=== PATIENT | male | born 1995 | race Caucasian/White ===

== ENCOUNTER 2024-02-04 20:29 | Emergency (ER) | payer MEDICAID ==
[~2024-02-04] VITALS: Ht 170.2 cm; Wt 73.0 kg
[2024-02-04 20:33] VITALS: O2SAT 98
[2024-02-04 23:26] LABS: HEMATOCRIT. 45.5 % (42.0-52.0); HEMOGLOBIN. 15.7 g/dL (14.0-18.0); MEAN CORPUSCULAR HEMOGLOBIN 31.1 pg (28.0-32.0); MEAN CORPUSCULAR HGB CONC 34.6 g/dL (31.0-37.0); MEAN CORPUSCULAR VOLUME 89.9 fL (80.0-94.0); MEAN PLATELET VOLUME 10.2 fl (7.4-10.4); PLATELET 290 x1000/uL (130-400); RED BLOOD CELL COUNT 5.07 mill/uL (4.7-6.1); RED CELL DISTRIBUTION WIDTH 14.4 % (11.6-14.6); WHITE BLOOD COUNT 23.6 x1000/uL (4.5-11.0)
[2024-02-04 23:37] LABS: CHLORIDE 110 mEq/L (98-107); POTASSIUM 3.6 mEq/L (3.5-5.1); SODIUM 140 mEq/L (136-145)
[2024-02-04 23:38] LABS: CALCIUM 8.4 mg/dL (8.7-10.4); CARBON DIOXIDE 24 mEq/L (21-32)
[2024-02-04 23:43] LABS: CREATININE 0.9 mg/dL (0.6-1.3); GLUCOSE 133 mg/dL (70-105); UREA NITROGEN BLOOD 8 mg/dL (9-23)
[2024-02-04 23:44] LABS: TROPONIN I HIGH SENSITIVITY 31 ng/L (3.0-53)
[2024-02-04 23:45] LABS: ALANINE AMINOTRANSFERASE 49 IU/L (10-49); ALBUMIN 4.1 g/dL (3.2-4.8); ASPARTATE AMINOTRANSFERASE 38 IU/L (<34)
[2024-02-04 23:46] LABS: BILIRUBIN TOTAL 0.8 mg/dL (0.1-1.0); PROTEIN TOTAL 6.4 g/dL (6.0-8.3)
[2024-02-04 23:50] LABS: ETHANOL BLOOD < 10 mg/dL (<10)
[2024-02-04 23:52] LABS: DIFFERENTIAL COMMENT 1
[2024-02-05 01:12] VITALS: BP 123/63; PULSE 54; RESP 13; TEMP 98.3
[2024-02-05] MEDS: SODIUM CHLORIDE 0.9% 1,000 ML IV ONE (01:34)
[2024-02-05] MEDS: ONDANSETRON HCL 4MG/2ML INJ IV ONE (01:34)
[2024-02-05] MEDS ORDERED: NALO4SPR BOTHNSTRLS (02:03)
[2024-02-05 03:00] LABS: CLARITY URINE CLEAR (CLEAR); COLOR URINE YELLOW (YELLOW); GLUCOSE URINE NEGATIVE (NEGATIVE); KETONES URINE 1+ (NEGATIVE); LEUKOCYTE ESTERASE URINE NEGATIVE (NEGATIVE); NITRITE URINE NEGATIVE (NEGATIVE); OCCULT BLOOD URINE NEGATIVE (NEGATIVE); PROTEIN URINE NEGATIVE (NEGATIVE); SPECIFIC GRAVITY URINE 1.017 (1.005-1.030); UROBILINOGEN URINE 0.2 E.U./dL (0.2-1.0)
[2024-02-05 03:12] LABS: *AMPHETAMINES SCREEN URINE NEGATIVE (NEGATIVE); *BARBITURATES SCREEN URINE NEGATIVE (NEGATIVE); *BENZODIAZEPINES SCREEN URINE NEGATIVE (NEGATIVE); *COCAINE SCREEN URINE NEGATIVE (NEGATIVE); METHADONE URINE SCREEN Neg (NEGATIVE)
[2024-02-05 03:13] LABS: CANNABINOID URINE SCREEN PRESUMPTIVE POSITIVE (NEGATIVE); ECSTASY MDMA SCREEN URINE NEGATIVE (NEGATIVE); OPIATES URINE SCREEN NEGATIVE (NEGATIVE); PHENCYCLIDINE URINE SCREEN NEGATIVE (NEGATIVE)
[2024-02-05 10:43] LABS: PLATELET ESTIMATE NORMAL
== END 2024-02-05 02:57 | disposition home or self-care (01) ==
LOC: ER 20:29
DX: T40.5X1A Poisoning by cocaine, accidental (unintentional), initial encounter (principal); F31.9 Bipolar disorder, unspecified; Y92.89 Other specified places as the place of occurrence of the external cause
CPT/HCPCS: 80053; 80320; 83880; 85025; 84484; 36415; 71045; 93005; 99285; 80305; 81003; 96374; J2405; J7030; Z7610; G0480

== ENCOUNTER 2024-10-31 20:40 | Emergency (ER) | payer MEDICAID ==
[~2024-10-31] VITALS: Ht 172.7 cm; Wt 80.0 kg
[2024-10-31] MEDS: QUETIAPINE FUMARATE 50MG TABLET PO ONE (01:00)
[2024-10-31] MEDS: POTASSIUM CHLORIDE 20MEQ TABLET SR PO ONE (01:00)
[~2024-10-31 20:40] MED LIST: NALO4SPR BOTHNSTRLS
[2024-10-31 20:53] VITALS: O2SAT 99
[2024-10-31] MEDS ORDERED: QUETIAPINE FUMARATE 50MG TABLET PO ONE (21:15)
[2024-10-31 21:49] LABS: CLARITY URINE CLEAR (CLEAR); COLOR URINE YELLOW (YELLOW); GLUCOSE URINE NEGATIVE (NEGATIVE); KETONES URINE NEGATIVE (NEGATIVE); LEUKOCYTE ESTERASE URINE NEGATIVE (NEGATIVE); NITRITE URINE NEGATIVE (NEGATIVE); OCCULT BLOOD URINE NEGATIVE (NEGATIVE); PH URINE 6.5 (4.5-8.0); PROTEIN URINE NEGATIVE (NEGATIVE); SPECIFIC GRAVITY URINE 1.017 (1.005-1.030); UROBILINOGEN URINE 0.2 E.U./dL (0.2-1.0)
[2024-10-31 22:01] LABS: BASOPHILS % 0.6 % (0.0-2.0); HEMATOCRIT. 44.3 % (42.0-52.0); HEMOGLOBIN. 15.6 g/dL (14.0-18.0); LYMPHOCYTES % 21.5 % (20.0-50.0); MEAN CORPUSCULAR HEMOGLOBIN 30.5 pg (28.0-32.0); MEAN CORPUSCULAR HGB CONC 35.2 g/dL (31.0-37.0); MEAN CORPUSCULAR VOLUME 86.7 fL (80.0-94.0); MEAN PLATELET VOLUME 9.4 fl (7.4-10.4); MONOCYTES % 8.9 % (2.0-8.0); PLATELET 288 x1000/uL (130-400); RED BLOOD CELL COUNT 5.11 mill/uL (4.7-6.1); RED CELL DISTRIBUTION WIDTH 13.2 % (11.6-14.6)
[2024-10-31 22:04] LABS: *AMPHETAMINES SCREEN URINE NEGATIVE (NEGATIVE); *BENZODIAZEPINES SCREEN URINE NEGATIVE (NEGATIVE)
[2024-10-31 22:05] LABS: *BARBITURATES SCREEN URINE NEGATIVE (NEGATIVE); *COCAINE SCREEN URINE NEGATIVE (NEGATIVE); CANNABINOID URINE SCREEN NEGATIVE (NEGATIVE); ECSTASY MDMA SCREEN URINE NEGATIVE (NEGATIVE); METHADONE URINE SCREEN NEGATIVE (NEGATIVE); OPIATES URINE SCREEN NEGATIVE (NEGATIVE); PHENCYCLIDINE URINE SCREEN NEGATIVE (NEGATIVE)
[2024-10-31 22:11] LABS: CARBON DIOXIDE 21 mEq/L (21-32); CHLORIDE 108 mEq/L (98-107); POTASSIUM 3.2 mEq/L (3.5-5.1); SODIUM 140 mEq/L (136-145)
[2024-10-31 22:12] LABS: CALCIUM 9.9 mg/dL (8.7-10.4)
[2024-10-31 22:17] LABS: CREATININE 0.8 mg/dL (0.6-1.3); GLUCOSE 130 mg/dL (70-105); UREA NITROGEN BLOOD 13 mg/dL (9-23)
[2024-10-31 22:19] LABS: ACETAMINOPHEN < 2 ug/mL (10-30)
[2024-10-31 22:27] LABS: ETHANOL BLOOD < 10 mg/dL (<10)
[2024-11-01] MEDS: QUETIAPINE FUMARATE 50MG TABLET PO NR ×2 (01:00→11:19)
[2024-11-01] MEDS ORDERED: QUETIAPINE FUMARATE 200MG TABLET PO NR (11:00)
[2024-11-01] MEDS: GABAPENTIN 300MG CAPSULE PO SCH (15:49)
[2024-11-01] MEDS: QUETIAPINE FUMARATE 50MG TABLET PO SCH (21:58)
[2024-11-01] MEDS: LITHIUM CARBONATE 150 MG CAPSULE PO SCH (21:58)
[2024-11-01] MEDS: PRAZOSIN HCL 1MG CAPSULE PO SCH (21:58)
[2024-11-02 00:58] VITALS: BP 115/68; PULSE 80; RESP 19; TEMP 36.83628; O2SAT 99
== END 2024-11-02 01:30 ==
LOC: ER 20:40
DX: R45.851 Suicidal ideations (principal); F31.9 Bipolar disorder, unspecified; F14.90 Cocaine use, unspecified, uncomplicated; F15.90 Other stimulant use, unspecified, uncomplicated; F25.9 Schizoaffective disorder, unspecified; Z79.899 Other long term (current) drug therapy; Z59.00 Homelessness unspecified; Z20.822 Contact with and (suspected) exposure to COVID-19
CPT/HCPCS: 80305; 80048; 81003; 80307; 80329; 80320; 85025; 36415; 99285; 87426; Z7610; G0480